=== PATIENT | male | born 1960 | race Caucasian/White ===

== ENCOUNTER 2017-01-11 05:42 | Day surgery (SDC) | payer MEDICARE ==
--- NOTE | 2017-01-10 10:43 | PCM.ANEPRE ---
Anesthesia Pre-Op Review Reason for Review: severe cardiomyopathy- ef 25%, required PTCA one day after last anes Anesthesia Recommendations: Proceed with Procedure Additional Comments 56 year-old gentleman scheduled for laparoscopic incisional hernia repair tomorrow 01/11/17. Notable history: ischemic cardiomyopathy (EF 25%, reassuring recent stress test (no ischemia, fixed defects) and ok'ed by punch operator. Pacemaker/AICD with orders to apply magnet. COPD and current smoker. His cardiac status appears optimized although the anesthesiologist on the DOS will assess for beta-sandra compliance, absence of current symptoms, and other potential issues. Chart Reviewed by: Matt Kendall MD Jan 10, 2017 10:42
[2017-01-11] VITALS (25 sets, daily range): BP systolic 91–135; BP diastolic 58–97; PULSE 18–85; RESP 10–22; O2SAT 93–99
[~2017-01-11] VITALS: Ht 177.8 cm; Wt 118.9 kg
[2017-01-11] MEDS: Lactated Ringer's 1,000 ML IV SCH ×3 (05:00→07:24)
[~2017-01-11 05:42] MED LIST: ALBU18HF INH; ASPI-973 PO; ATOR80TA PO; BUPR150T12 PO; CLOB15CR3 TOP; CLOP75TA28 PO; FURO40TA4 PO; HYDR-4003 PO; KEN25CR EXT; LORA1TAB PO; METO50TA3 PO; MUPI22OI2 TOP; NITR0.4T SL; OMEP20TA86 PO; TRAZ150T72 PO
[2017-01-11] MEDS ORDERED: Lidocaine PF 1% 30 mL Inj ONE (05:43)
[2017-01-11] MEDS ORDERED: Phenylephrine/NS 100 mCg/mL 10 mL Syringe IVPUSH ONE (05:43)
[2017-01-11] MEDS ORDERED: Dexamethasone 4 mg/mL Inj ONE (05:43)
[2017-01-11] MEDS ORDERED: Propofol 10,000 mCg/mL 20 mL Inj ONE (05:43)
[2017-01-11] MEDS ORDERED: EPHEDrine/NS 5 mg/mL 5 mL Syringe ONE (05:43)
[2017-01-11] MEDS ORDERED: fentaNYL-PF 50 mCg/mL 2 mL Inj ONE (05:43)
[2017-01-11] MEDS ORDERED: Rocuronium 10 mg/mL 5 mL Inj ONE (05:43)
[2017-01-11] MEDS ORDERED: Ondansetron 2 mg/mL 2 mL Inj ONE (05:43)
[2017-01-11] MEDS: CeFAZolin Inj 3 GM in IV Premix IV SCH ×2 (06:00→07:45)
[2017-01-11] MEDS ORDERED: Heparin 5,000 Unit/mL Inj SUBQ SCH (06:00)
[2017-01-11] MEDS ORDERED: CeFAZolin Inj 2 gm / 50mL D5W IV ONE (06:29)
--- NOTE | 2017-01-11 07:24 | PCM.HPANE ---
Patient Data Date of Service: Jan 11, 2017 Surgeon Admitting Provider: Attending Provider:Nikhil Adam MD Primary Care Physician:Emma Meyer MD Other Provider:Jaimie Carmen Anesthesia Reason for Visit Incarcerated Incisional Hernia Ht/WT & BMI Height (Feet): 5 Height (Inches): 10 Weight (Kilograms): 117.4 Body Mass Index 37.00 Allergies Coded Allergies: No Known Allergies (Verified , 01/07/17) Past Anesthesia History Anesthesia History: Positive for:: Anesthesia Reactions (MUST HAVE BENADRYL WITH ANESTHESIA), Denies:: Malignant Hyperthermia Diabetes History Hx Diabetes?: No Current Bedside Blood Glucose: 100 MRSA MRSA: No Medications Blood Thinner: Aspirin, Plavix Hypertension Medication: Yes Home Meds Incl Beta Yuan: Yes Date Beta Yuan Taken: Jan 11, 2017 Time Beta Yuan Taken: 0300 Reported Medications Albuterol Sulfate (Ventolin HFA Inhaler)200 Puff/18 Gm Inhaler1 Puff INH Q4 PRN For Wheezing #1 INHALER Ref 0 01/07/17 Triamcinolone Acet (Triamcinolone Acetonide Cream)1 Applic/0.25 Gm Cr1 Applic EXT BID PRN skin irritation #60 GM Ref 0 01/07/17 Trazodone 150 Mg Ualgho488 Mg PO HS Ref 0 01/07/17 Nitroglycerin SL (Nitrostat)0.4 Mg Tab.subl0.4 Mg SL Q5MIN PRN For Chest Pain # 1 BOTTLE 01/07/17 Mupirocin (Mupirocin Ointment)22 Gm Oint...g.1 Applic TOP TID #1 TUBE Ref 0 01/07/17 Metoprolol Tartrate 50 Mg Dlausf02 Mg PO BID 30 Days Ref 0 01/07/17 Lorazepam 1 Mg Tablet1 Mg PO BID PRN For Anxiety Ref 0 01/07/17 Hydrocodone-Acetaminophen 5-325 mg 1 Each Tablet1-2 Tablet PO Q6H PRN For Pain Ref 0 01/07/17 Furosemide 40 Mg Vmkwhn56 Mg PO BID 01/07/17 Clopidogrel 75 Mg Rwehjm22 Mg PO DAILY Ref 0 01/07/17 Clobetasol Propionate/Emoll (Clobetasol Emollient 0.05% Crm)15 Gm Cream..g.1 Appl TOP BID PRN skin irritation #1 TUBE 01/07/17 Bupropion ER 150 Mg Tablet.er150 Mg PO BID Ref 0 01/07/17 Atorvastatin (Lipitor)80 Mg Fyiwhz67 Mg PO DAILY Ref 0 01/07/17 Aspirin 81 Mg Rzfjsw99 Mg PO DAILY Ref 0 01/07/17 Discontinued Reported Medications Omeprazole 20 Mg Tablet.dr20 Mg PO BID Ref 0 01/07/17 Clopidogrel Bisulfate (Plavix)75 Mg Gkgllv18 Mg PO DAILY 30 Days Ref 0 07/17/15 Aspirin 81 Mg Feexqq27 Mg PO DAILY Ref 0 07/17/15 Lisinopril 20 Mg Rvuuym55 Mg PO DAILY 30 Days Ref 0 07/17/15 Hydrocodone-Acetaminophen 5-325 mg 1 Each Tablet2 Tablet PO Q4H PRN For Pain Ref 0 07/17/15 Nitroglycerin-Expunged Drug, Do Not Renew! (Nitroglycerin SL-Expunged Drug, Do Not Renew!)0.4 Mg Subl0.4 Mg SL PRN 05/09/13 Trazodone-Expunged Drug, Do Not Renew! 100 Mg Zhc47-968 Mg PO HSP 04/25/13 Albuterol-Expunged Drug, Do Not Renew! 90 Mcg Puff1-2 Puffs INH Q4-6HP 04/25/13 Metoprolol Tart-Expunged Drug, Do Not Renew! 50 Mg Pwhgzi15.5 Mg PO DAILY 03/21/13 Furosemide-Expunged Drug, Do Not Renew! 40 Mg Sxvbrx80 Mg PO DAILY #30 TAB 03/21/13 Lorazepam-Expunged Drug, Do Not Renew! 2 Mg Tablet1 Mg PO Q6 03/21/13 Omeprazole-Expunged Drug, Do Not Renew! 40 Mg Capsule.dr40 Mg PO 03/19/13 Atorvastatin-Expunged Drug, Do Not Renew! 20 Mg Wczqpg31 Mg PO DAILY 03/19/13 History History of ENT Problems?: Yes HEENT History: Positive for:: Sinus Problem Denture Type: Full- Upper Full- Lower Hx of Heart Problems?: Yes Cardiovascular History: Positive for:: AICD Abdominal Aortic Aneurism Cardiac Surgery (aicd) Chest Pain (HX OF CA'S) Congestive Heart Failure (cardiomyopathy- ischemic) Edema Hypertension Irregular Heartbeat (HX OF V TACHY) Denies:: Heart Murmur Pacemaker Thrombophlebitis Hx of Respiratory Problem?: Yes Respiratory History: Positive for:: Asthma COPD Dyspnea (recently) Pneumonia (2009) Denies:: Chest Surgery Emphysema Hemoptysis Oxygen Administration Tuberculosis Use of C-PAP Machine Hx Neurologic Problems?: No Neurological History: Denies:: CVA Multiple Sclerosis Parkinson's Disease Seizures Hx of GI Problems?: Yes Gastrointestinal History: Positive for:: Heartburn Other GI Pertinent History: incisional hernia current admission problem Hx of Problems?: Yes Genitourinary History: Positive for:: Kidney Stones (past hx of) Other Pertinent History: 2012-right nephrectomy for ca Male Hx: Denies:: Prostate Problems Scrotal Mass Testicular Surgery Skin History: Denies:: History Skin Disorders? Pressure Ulcers Hx Musculoskeletal Problems?: Yes Musculoskeletal History: Positive for:: Back Injury (1996- trauma- run over by forklift) Musculoskeletal Trauma (hx of left hip dislocation with 1996 trauma) Denies:: Joint Replacement Hx of Psycho/Social Problems?: Yes Psycho Social History: Positive for:: Anxiety Hx Depression Denies:: Bipolar Disorder Hx Surgeries?: Yes (AICD,RT KNEE RPR,HERNIA RPR) Hx Any Other Health Problems?: Yes Other History: Positive for:: Hospitalization (CA's, pneumonia,AICD placement) Denies:: Cancer Endocrine Disease Thyroid Disease History Blood Transfusions: Denies:: Blood Transfusions Hx Diabetes: NoBedside Blood Glucose: 100 Hx Alcohol Use: NoHx Substance Use: NoHave You Smoked inLast 12 mo: No Stop/Bang S-Snoring: Do You Snore Loudly: No T-Tired: feel tired, fatigued: No O-Obsered: Observed not breath: No P-Blood Pressure: treated: Yes B- Body Mass Index > 35 kg/m2: Yes A- Age over 50: Yes N- Neck Large Circumference: No G- Gender Male: Yes RUKHSANA Total Score: 4 RUKHSANA Risk Assessment: High Risk, =/>3 Yes Risk Assessment Category Category 1A: Patient has history of documented sleep apnea, and HAS NOT received any narcotic, sedative or anesthesia administration during this stay. Category 1B: Patient has history of documented sleep apnea, and HAS received any narcotic , sedative or anesthesia administration during this stay Category 2: Patient has SUSPECTED Obstructive Sleep Apnea, and HAS received any narcotic , sedative or anesthesia administration during this stay. Category 3: Patient has SUSPECTED Obstructive Sleep Apnea and HAS NOT received narcotic, sedative or anesthesia administration during this stay. Category 4: Outpatient in Procedural Areas with known sleep apnea or who screen positive for High Risk via the STOP/BANG questionnaire. Exam Exam Vital Signs Vital Signs Date Time Temp Pulse Resp B/P Pulse Ox O2 Delivery O2 Flow Rate FiO2 01/11/17 06:33 36.1 63 15 105/77 94 Room Air General Appearance: Alert, Oriented X3, Cooperative, No Acute Distress HEENT/AIRWAY: MP 2 Lungs: Normal Air Movement Heart: Exam Unremarkable Meds/Labs/Diagnostics Admission Meds Current Medications Lactated Ringer's (Lr) 1,000 ml @ 120 mls/hr Q8H20M IV Last administered on t 06:33; Start 01/11/17 at 05:00; Stop 01/11/17 at 13:19 Bedside Blood Glucose: 100 Plan Impression Patient chart reviewed, patient interviewed and anesthestic plan with risks, benefits, and alternatives discussed, and informed consent obtained. NPO Status: 01/10/17 ASA Physical Status: ASA3 Severe Disease (CAD, COPD) Anesthetic Plan: GA Bene/Risks/Altern/Consents: Yes HP Complete Prior to Induction: Yes Rory Joshi MD Jan 11, 2017 07:10
[2017-01-11] MEDS ORDERED: Bupivacaine-MPF 0.5% W/EPI 30 mL Inj INFILTRATE ONE (08:00)
[2017-01-11] MEDS ORDERED: Lactated Ringer's 1,000 ML IV SCH (08:02)
[2017-01-11] MEDS ORDERED: Lactated Ringer's 500 ML IV PRN (08:02)
[2017-01-11] MEDS ORDERED: Atropine 0.4 mg/mL Inj IVPUSH PRN (08:05)
[2017-01-11] MEDS ORDERED: Ondansetron 2 mg/mL 2 mL Inj IVPUSH PRN ×2 (08:05→09:55)
[2017-01-11] MEDS ORDERED: Albuterol-Ipratropium 3 mL Inhalation Solution NEB PRN (08:05)
[2017-01-11] MEDS ORDERED: Labetalol 5 mg/mL 4 mL Inj IV PRN (08:05)
[2017-01-11] MEDS ORDERED: MetoCLOpramide 5 mg/mL 2 mL Inj IVPUSH PRN ×2 (08:05→09:55)
[2017-01-11] MEDS ORDERED: Dexamethasone 4 mg/mL Inj IVPUSH PRN (08:05)
[2017-01-11] MEDS ORDERED: EPHEDrine Sulfate 50 mg/mL Inj IVPUSH PRN (08:05)
[2017-01-11] MEDS ORDERED: Phenylephrine 10,000 mCg/mL Inj IVPUSH PRN (08:05)
[2017-01-11] MEDS ORDERED: Dextrose 5% Lactated Ringer's 1,000 ML IV SCH (09:54)
[2017-01-11] MEDS ORDERED: oxyCODONE-Acetamin 5-325 mg Tablet PO PRN (09:55)
[2017-01-11] MEDS ORDERED: Polyethylene Glycol (PEG) 17 Gm Powder PO PRN (09:55)
--- NOTE | 2017-01-11 10:18 | PCM.ANEP1 ---
Post Anesthesia Phase 1 PACU Phase 1 Assessment Date of Service: Jan 11, 2017 Vital Signs Vital Signs Date Time Temp Pulse Resp B/P Pulse Ox O2 Delivery O2 Flow Rate FiO2 01/11/17 10:10 78 16 126/83 95 Simple Mask 8 01/11/17 10:06 36.3 79 16 125/92 95 Simple Mask 8 01/11/17 06:33 36.1 63 15 105/77 94 Room Air Anesthetic Administered: GA Level of Alertness: Drowsy, not talking Pain: No Nausea or Vomiting: No Airway Device: Oralpharangeal Airway Oxygen Delivery: Simple Mask Lungs: Normal Air Movement Rory Joshi MD Jan 11, 2017 10:18
[2017-01-11] MEDS: fentaNYL-PF 50 mCg/mL 2 mL Inj IVPUSH PRN ×3 (10:30→11:29)
[2017-01-11] MEDS ORDERED: Albuterol HFA 60 Puff 8 Gm Inhaler INHALATION PRN (10:30)
[2017-01-11] MEDS: HYDROmorphone 1 mg/mL Inj IVPUSH PRN ×5 (10:38→19:40)
--- NOTE | 2017-01-11 10:46 | OP ---
[address] [address] OPERATIVE REPORT PATIENT: WILLOW RICHMOND : 1960 MR#: [id number] ADMIT: 01/11/2017 JOB ID: [id number] DATE OF SURGERY: 01/11/2017 PREOPERATIVE DIAGNOSIS(ES): Incarcerated multi-fenestrated incisional hernia. POSTOPERATIVE DIAGNOSIS(ES): Incarcerated multi-fenestrated incisional hernia. PROCEDURE: Laparoscopic repair incarcerated multi-fenestrated incisional hernia with mesh. SURGEON: Nikhil Adam MD. FIELD TALENT QUALIFICATION SPECIALIST: Nomi Servin PA-C INDICATIONS: A 56-year-old man who required a right nephrectomy for cancer. It was done through a hand port. He developed an incarcerated incisional hernia that was symptomatic and increasing in size. He has significant comorbidities including coronary artery disease with cardiac stents, and ischemic cardiomyopathy, he has a cardiac defibrillator. Preoperatively he was on dual platelet therapy but the Plavix was held. After discussing options with the patient, it was elected to proceed with laparoscopic repair. FINDINGS: He had incarcerated omentum in the multiple fenestrations. The ultimate length of the hernia was 15 cm by approximately 10 cm. It was repaired with a 20 x 15 cm Ventralight mesh with the echo device. DESCRIPTION OF PROCEDURE: At the beginning and end of the operation, the SCOAP checklist was completed. A general endotracheal anesthetic was induced. A Callahan catheter was inserted and removed at the end of the operation. He had on pneumatic hose and received subcutaneous heparin and he received intraoperative antibiotics prior to incision. Using ChloraPrep, he was prepped and draped in the usual fashion. All trocar sites were infiltrated with 0.5% plain bupivacaine. A small incision was made in the left subcostal abdominal wall. A Veress needle inserted. The abdomen was inflated and then a 5 mm optical port was placed through the same site. All other ports were then placed under direct visualization and he ultimately had three 5 mm ports through the left lateral abdominal wall. A 5 mm port in the right upper quadrant, in the right lower quadrant and the 12 mm port in the mid lateral right abdominal wall. He had adhesions trapping omentum up into the hernias with very dense adhesions requiring sharp dissection. Hemostasis from the omentum was obtained with cautery. There were loops of bowel adjacent to the omentum but I did not have to specifically divide any adhesions to the small bowel. After exposing all the hernia defects, it was measured internally by use of a suture. And then I selected a 20 x 15 cm Ventralight mesh with echo fixation device. It was inserted through the 12 mm port, properly positioned and a tawana made to tawana the mid point of the hernia defect and the inflation tube was brought out through that point. The echo device was inflated securing the mesh against the anterior abdominal wall. Tacks were then placed circumferentially and once it was well secured, the echo device was deflated and removed through the 12 mm port intact. The additional tacks were then placed to secure the mesh and then an inner row of tacks were also placed. Some omentum had been divided and this was placed into a specimen bag and brought out through the 12 mm port. The 12 mm port site was then closed with mattress suture of 0-Vicryl. The abdomen was deflated. There was no evidence of significant bleeding and blood loss was less than 10 cc. After deflating the abdomen, the ports were removed without evidence of bleeding from port sites and the skin incisions were closed with subcuticular 4-0 Vicryl. Steri-Strips and Band-Aids were applied. There were no apparent complications. The final sponge, needle and instrument counts were announced as correct and the patient was returned to the recovery room in stable condition. Critical assistance provided by Nomi Servin, ARABELLA DECKER
--- NOTE | 2017-01-11 11:23 | PCM.ANEP2 ---
Post Anesthesia Evaluation ASA/CMS Post Anesthesia Date of Service: Jan 11, 2017 VS in Patient's Normal Range?: Yes Resp Stable; Airway Patent?: Yes CV Function & Hydration Stable: Yes Mental Status Recovered?: Yes Pain control Satisfactory?: Yes N/V Control Satisfactory?: Yes Rory Joshi MD Jan 11, 2017 11:23
[2017-01-11] MEDS ORDERED: Furosemide 10 mg/mL 2 mL Inj IVPUSH ONE (11:25)
[2017-01-11] MEDS ORDERED: HYDROcodone-APAP 5-325 mg Tablet PO PRN (12:25)
[2017-01-11] MEDS ORDERED: Albuterol 2.5 mg/3 mL Inhalation Solution NEB PRN (12:25)
[2017-01-11] MEDS ORDERED: LORazepam 1 mg Tablet PO PRN (12:25)
[2017-01-11] MEDS: buPROPion SR 150 mg ER12 Tablet PO SCH ×2 (14:17→19:40)
[2017-01-11] MEDS: Acetaminophen IV 1,000 MG in IV Premix 1 EACH IV SCH ×2 (14:38→19:40)
[2017-01-11] MEDS: Mupirocin 2% 22 Gm Ointment TOPICAL SCH ×2 (14:42→22:53)
--- NOTE | 2017-01-11 15:30 | NUR ---
POST OP Patient arrived from surgery at 1230, post op hernia repair with mesh. Patient came on 8L Oxymask and was put on pulse ox, sats mid 90's, have been able to titrate oxygen done to 3L NC presently sats till low 90's. Pain- patient comfortable presently with IV Tylenol and Vicodin x1. Abdominal binder applied, patient given 40mg PO Lasix but has yet to void, will try to ambulate patient later in shift. Telemetry in place, alarm security or surveillance monitor reports SR 60's with PVC's and patient paced with some "failure to capture" will continue to monitor, patient has significant cardiac history. Lap surgery sites x7 are c/d/i bandaids. Addendum: 01/11/17 at 1602 by SURESH HERNANDES RN DISREGARD "FAILURE TO CAPTURE" Nurse was in error. Upon questioning in person alarm security or surveillance monitor denies any "failure to capture" Patient is paced with PVC's, denies chest pain, SR 60-70. Addendum: 01/11/17 at 1804 by SURESH HERNANDES RN BLADDER SCAN Patient has not voided, for six hours on floor, Bladder scan volume 385ml, will try ambulation, and make MD aware. Patient did get 40mg Lasix at 1400.
[2017-01-12] MEDS: HYDROmorphone 1 mg/mL Inj IVPUSH PRN ×2 (00:04→05:25)
[2017-01-12 01:16] VITALS: BP 97/68; PULSE 70; RESP 20; O2SAT 97
[2017-01-12] MEDS: Acetaminophen IV 1,000 MG in IV Premix 1 EACH IV SCH ×2 (02:50→07:48)
--- NOTE | 2017-01-12 04:32 | NUR ---
Pain/urination Pt reports pain 4/10 and 5/10. IV tylenol routine is effective with dilaudid IV for breakthrough. Pt has 7 lap sites that are CDI. Abdominal binder in place. Pt has been able to urinate this shift, stated it hurt the 1st time, he didn't realize he had a catheter during surgery. Pt is currently on 2L o2 via NC and sat's in the 90"s
[2017-01-12 05:19] VITALS: BP 110/76; PULSE 72; RESP 18; O2SAT 94
[2017-01-12] MEDS: Mupirocin 2% 22 Gm Ointment TOPICAL SCH (07:48)
[2017-01-12] MEDS: buPROPion SR 150 mg ER12 Tablet PO SCH (07:48)
--- NOTE | 2017-01-12 08:58 | PCM.DISURG ---
Surgical Discharge Instruction Date of Service Jan 12, 2017 Dates of Hospitalization Date of Hospital Admission Providers Admitting Physician: Primary Care Physician: Emma Meyer MD Attending Physician: Nikhil Adam MD Diet Discharge Diet: No restrictions Activity Discharge Activity-General: Ice incision 3-5 time/day for 20min, Restrict lifting to no greater than (30 lbs for one month) Dressing and Incisional Care Hygiene: May shower Follow Up Plan Follow-up Provider (F9): Nikhil Adam MD Follow-up appointment: Days (14-21 days) Nikhil Adam MD Jan 12, 2017 08:58
[2017-01-12 09:37] VITALS: BP 104/67; PULSE 66; RESP 16; O2SAT 93
[2017-01-12 09:56] VITALS: PULSE 80
--- NOTE | 2017-01-12 10:03 | NUR ---
Evaluation completed. Please go to "Notes" then click on "Assessments and Notes" (bottom left corner of screen). Then select appropriate discipline tab on top of screen.
--- NOTE | 2017-01-12 10:46 | NUR ---
Social Work-initial Assessment/Discharge: Data:See initial assessment. Pt is a 56 y/o male who was admitted on 01/11/17 for incarcerated incisional hernia per H&P. Pt's insurance is [facility] Medicare and PCP is Emma Meyer MD. EMR Reviewed. Pt's readmission score is not available. SW met with pt at bedside to discuss discharge planning, SW role explained. Pt is alert and oriented x3. Pt resides at home alone in a single level home with no step to enter where pt remains independent with basic ADLs. Pt drives POV and is independent at baseline. Pt has no HH or SNF history. Pt reports he has completed DPOA/Advanced Directive paperwork and SW requested he provide the hospital with a copy. Pt to discharge home today via friend in POV. All updated and agreeable to plan. Assessment:Pt who resides at home alone and is independent at baseline. Plan:Pt to discharge home via friend in POV with no needs. All updated and agreeable to plan. PAULA Carlos Addendum: 01/12/17 at 1102 by WALTER MAHMOOD SS Amended: Links added.
--- NOTE | 2017-01-12 12:33 | NUR ---
discharged home with friend. eating/drinking well, weaned from oxygen, ambulating, incisions look good. Will have f/u appt with DR Cipriano Adam office in 10-14 days. Pt was told not to start his Plavix until Tuesday (3 more days)
--- NOTE | 2017-01-12 13:20 | PROG NOTE ---
[address] [address] PROGRESS NOTE PATIENT: WILLOW RICHMOND : 1960 MR#: [id number] ADMIT: 01/11/2017 JOB ID: [id number] DATE: 01/12/2017 PROGRESS NOTE: Postoperative day one following laparoscopic repair of a large multi-fenestrated incarcerated incisional hernia. Over the night, he has done well. His abdominal wall pain is decreased. He has been able to get out of bed. He is able to eat regular food this morning. His pain has decreased significantly. He has also been able to urinate. PHYSICAL EXAMINATION: He is alert, no distress. Temperature is 36.5, brachial blood pressure 104/67, pulse 80 and regular, respiratory rate 16. O2 sat on room air is 93%. Examination of all his incisions are healing well. No evidence of ecchymosis. IMPRESSION: Doing well. PLAN: He will be discharged to home today. He will return to see me in 2-3 weeks. He will restart his Plavix in three days. He will be given 5 mg/325 mg Vicodin for pain. Otherwise, he will use acetaminophen.
--- NOTE | 2017-01-12 13:26 | PCM.DC.SUR ---
Discharge Summary Date of Service: Jan 12, 2017 Date of Hospital Admission: 01/11/17 Date of Operation(s): 01/11/17 Date of Discharge: Jan 12, 2017 at 12:00 Diagnosis at Time of Discharge Incarcerated multi-fenestrated incisional hernia Problems: (1) Ischemic cardiomyopathy Status: Acute ICD Code: I25.5 (2) Coronary artery disease Status: Acute ICD Code: I25.10 (3) Incisional hernia Status: Acute ICD Code: K43.2 Operation Laparoscopic repair incarcerated multi-fenestrated incisional hernia with mesh Consultants: None Hospital Course: The patient was taken to the OR for a laparoscopic repair of his incarcerated multi-fenestrated incisional hernia with utilization of mesh. The patient tolerated the procedure well and after a short time in the PACU, was transferred to his hospital room where he remained for the balance of his hospital stay. On post operative day number 1, he was found to be tolerating his pain well, and his vital signs were stable and his surgical incision looked benign. He was then discharged to home in good condition. Pathology: None. Disposition: To home in good condition. Follow-up Plan: Follow up in 10-14 days in post-operative clinic. Restart Plavix in 3 days. Albuterol Sulfate (Ventolin HFA Inhaler) 200 Puff/18 Gm Inhaler 1 PUFF INH Q4 PRN PRN For Wheezing (Reported) Aspirin (Aspirin) 81 Mg Tablet 81 MG PO DAILY (Reported) Atorvastatin (Lipitor) 80 Mg Tablet 40 MG PO DAILY (Reported) Bupropion ER (Bupropion ER) 150 Mg Tablet.er 150 MG PO BID (Reported) Clobetasol Propionate/Emoll (Clobetasol Emollient 0.05% Crm) 15 Gm Cream..g. 1 APPL TOP BID PRN PRN skin irritation (Reported) Clopidogrel (Clopidogrel) 75 Mg Tablet 75 MG PO DAILY (Reported) Furosemide (Furosemide) 40 Mg Tablet 40 MG PO BID (Reported) Hydrocodone-Acetaminophen 5-325 mg (Hydrocodone-Acetaminophen 5-325 mg) 1 Each Tablet 1-2 TABLET PO Q6H PRN PRN For Pain (Reported) Lorazepam (Lorazepam) 1 Mg Tablet 1 MG PO BID PRN PRN For Anxiety (Reported) Metoprolol Tartrate (Metoprolol Tartrate) 50 Mg Tablet 50 MG PO BID (Reported) Mupirocin (Mupirocin Ointment) 22 Gm Oint...g. 1 APPLIC TOP TID (Reported) Nitroglycerin SL (Nitrostat) 0.4 Mg Tab.subl 0.4 MG SL Q5MIN PRN PRN For Chest Pain (Reported) Trazodone (Trazodone) 150 Mg Tablet 150 MG PO HS (Reported) Triamcinolone Acet (Triamcinolone Acetonide Cream) 1 Applic/0.25 Gm Cr 1 APPLIC EXT BID PRN PRN skin irritation (Reported) copies to: Emma Meyer MD, Samuel L PA-C Jan 12, 2017 13:26
--- NOTE | 2017-01-12 14:42 | DIS ---
[address] [address] DISCHARGE SUMMARY PATIENT: WILLOW RICHMOND : 1960 MR#: [id number] ADMIT: 01/11/2017 JOB ID: [id number] DIS: 01/12/2017 DATE: 01/12/2017 DISCHARGE DIAGNOSES: 1. Multi-fenestrated incarcerated incisional hernia. 2. History of left kidney cancer. 3. History of coronary artery disease. 4. History of congestive cardiomyopathy. 5. History of tobacco addiction. 6. History of chronic obstructive pulmonary disease. 7. History of hypertension. 8. History of a defibrillator. OPERATION: Laparoscopic repair of multi-fenestrated incisional hernia with mesh. HOSPITAL COURSE: On the day of admission, his operation was performed. A magnet was placed over his AICD. It was removed at the end of the operation. He had no cardiac complications with his operation. Postoperatively, he was kept on telemetry. He had an expected amount of postoperative pain and was slow to move yesterday afternoon, but during the evening and night he improved considerably. By this morning, he had an O2 sat on room air 93%. He was eating regular food. He was able to urinate, and pain was controlled with oral agents. MEDICATIONS: He is discharged to home on his normal medications of: 1. Albuterol inhaler. 2. Triamcinolone cream. 3. Trazodone 150 mg p.o. q.h.s. 4. Nitroglycerin p.r.n. 5. Mupirocin ointment p.r.n. 6. Metoprolol 50 mg p.o. b.i.d. 7. Lorazepam 1 mg p.o. b.i.d. 8. Hydrocodone/acetaminophen 5/325 mg one p.o. q.4 p.r.n. pain. 9. Furosemide 40 mg b.i.d. 10. Clobetasol ointment p.r.n. 11. Bupropion 150 mg b.i.d. 12. Atorvastatin 80 mg daily. 13. Aspirin 81 mg daily. 14. He will restart his clopidogrel 75 mg daily in three days. PLAN: Return to see me in 2-3 weeks. He will be able to shower today. He will not do heavy lifting more than 30 pounds for four weeks.
== END 2017-01-12 12:00 | disposition home or self-care (01) ==
LOC: SAS 05:42 → OSC 12:15 → SAS 01-12 12:00
PROVIDERS: ATTEND Surgery
DX: K43.0 Incisional hernia with obstruction, without gangrene (principal); I10 Essential (primary) hypertension; I71.4 Abdominal aortic aneurysm, without rupture; I50.9 Heart failure, unspecified; J45.909 Unspecified asthma, uncomplicated; J44.9 Chronic obstructive pulmonary disease, unspecified; Z87.442 Personal history of urinary calculi; Z79.82 Long term (current) use of aspirin; Z79.02 Long term (current) use of antithrombotics/antiplatelets; F41.9 Anxiety disorder, unspecified; F32.9 Major depressive disorder, single episode, unspecified
CPT/HCPCS: 49655; 94640; 94664; 97161; C1781; J0131; J0690; J1100; J1170; J1200; J1885; J1940; J2250; J2370; J2405; J3010; J7120; J7620